=== PATIENT | female | born 1980 | race Hispanic/Latino ===

== ENCOUNTER 2017-12-07 10:16 | Inpatient (IN) | payer MEDICAID ==
[2017-12-07] MEDS ORDERED: BICITRA PO ONE (10:37)
[2017-12-07] MEDS ORDERED: PEPCID IV ONE ×2 (10:37→13:35)
[2017-12-07] MEDS ORDERED: REGLAN IV ONE (10:37)
--- NOTE | 2017-12-07 10:40 | History and Physical Report ---
History of Present Illness Date of examination: 12/07/17 (SROM @ home this AM) Date of admission: 12/07/17 10:16 Chief complaint: SROM this AM History of present illness: EDC Calculations LMP: 12/24/2017 EDC Confirmation: 12/24/2017 Gestational Age: 11 4/7 weeks Past History : 3 Term Births: 0 Premature Births: 0 Living Children: 0 Para: 0 Mult. Births: 0 Prev : 0 Prev. attempt? 0 Aborta: 2 Elect. Ab: 1 Spont. Ab: 1 Ectopics: 0 # 1 Delivery date: 2012 Weeks Gestation: 8 Delivery type: SAB Comments: expectant management # 2 Delivery date: 2014 Delivery type: EAB Past Medical History: Depression - referred to [facility] Past Surgical History: D&C: Risk Factors: Smoked Tobacco Use: Never smoker Smokeless Tobacco Use: Never Passive smoke exposure: no Drug use: no HIV high-risk behavior: no Caffeine use: 2 drinks per day Alcohol use: no Exercise: no Seatbelt use: 100 % Family History Risk Factors: Family History of CT in females < 65 years old: no Family History of CT in males < 55 years old: no Dietary Counseling: pn yes Past Medical History Surgery (Non-global account director): D&C: Abnormal PAP: negative OLGA Exposure: negative Infertility: negative Uterine Anomaly: negative Uterine Surgery (not C/S): negative Other Gynecologic Problems: negative Family Hx: Mother, MGM - DM & HTN Social Hx: Homemaker Dogs No ETOH/Drugs/Smoking Infection History Hx of STD: none HIV Risk Eval: no Hepatitis B Risk Eval: low risk Personal hx. of genital herpes: no Partner hx. of genital herpes: no Rash, Viral, or Febrile illness since last LMP? no Varicella/Chicken Pox Status: Previous Disease Genetic History Congenital Heart Defect: Mom: no Dad: no Ezequiel Disease: Mom: no Dad: no Thalassemia Mom: no Dad: no Neural Tube Defect Mom: no Dad: no Down's Syndrome Mom: no Dad: no Justin-Sachs Mom: no Dad: no Sickle Cell Disease/Trait Mom: no Dad: no Hemophilia Mom: no Dad: no Muscular Dystrophy Mom: no Dad: no Cystic Fibrosis Mom: no Dad: no Bhavik Chorea Mom: no Dad: no Mental Retardation Mom: no Dad: no Fragile X Mom: no Dad: no Other Genetic/Chromosomal Disorder Mom: no Dad: no Child w/other defect Mom: no Dad: no Enviromental Exposures Xray Exposure: no Medication, drug, or alcohol use since LMP: no Chemical/Other Exposure: no Exposure to Cat Liter: no Hx of Parvovirus (Fifth Disease): no Occupational Exposure to Children: none Active Medications (reviewed today): None Current Allergies (reviewed today): No known allergies Laboratory Results Date/Time Collected: 06/08/2017 Routine Urinalysis Leukocytes: negative Nitrite: negative Urobilinogen: negative Protein: negative Blood: negative Ketone: negative Bilirubin: negative Glucose: negative Urine HCG: positive Review of Systems General Denies fever, chills, sweats, anorexia, fatigue, weakness, malaise, weight loss and sleep disorder. Denies nausea, vomiting, headache, swelling of legs, abdominal pain, vaginal discharge, vaginal bleeding and contractions. Denies vaginal discharge, incontinence, dysuria, hematuria, urinary frequency, amenorrhea, menorrhagia, abnormal vaginal bleeding, pelvic pain, genital sores, decreased libido, painful periods, painful sex, urinary urgency, hot flashes, vaginal dryness, vaginal itching and vaginal odor. CV Denies chest pains, palpitations, syncope, dyspnea on exertion, orthopnea, PND and peripheral edema. Resp Denies cough, dyspnea at rest, excessive sputum, hemoptysis, wheezing and pleurisy. GI Denies nausea, vomiting, diarrhea, constipation, change in bowel habits, abdominal pain, melena, hematochezia, jaundice, gas/bloating, indigestion/ heartburn, dysphagia and odynophagia. Endo Denies cold intolerance, heat intolerance, polydipsia, polyphagia, polyuria and unusual weight change. Breast Denies left breast lump, right breast lump, nipple discharge, bloody discharge from nipple, breast pain, abnormal mammogram and breast enlargement. MS Denies back pain, joint pain, joint swelling, muscle cramps, muscle weakness, stiffness, arthritis, sciatica, restless legs, leg pain at night and leg pain with exertion. Derm Denies rash, itching, dryness and suspicious lesions. Neuro Denies paralysis, paresthesias, headache, seizures, tremors, vertigo, transient blindness, frequent falls, frequent headaches and difficulty walking. Psych Denies depression, anxiety, irritability and mood swings. Eyes Denies blurring, diplopia, irritation, discharge, vision loss, eye pain and photophobia. ENT Denies earache, ear discharge, tinnitus, decreased hearing, nasal congestion, nosebleeds, sore throat and hoarseness. Allergy Denies urticaria, allergic rash, hay fever and recurrent infections. Heme Denies abnormal bruising, bleeding and enlarged lymph nodes. PHYSICAL EXAM HEENT: PERRLA, normal conjunctiva, external nose and nasal mucosa normal, oropharynx clear Neck/Thyroid: supple, thyroid normal Skin no significant abnormal lesions or rashes Chest: respiratory effort normal, clear to auscultation Breasts: normal without skin changes or masses CV: regular, normal S1-S2, no murmur, no rub, no gallop Abdomen: normal bowel sounds, soft, nontender, no HSM Musculoskeletal: grossly normal ROM in joints, no joint tenderness or muscle weakness Neuro: grossly normal DTRs, sensation, strength, cranial nerves Extremities: no clubbing, cyanosis, or edema DIVISION SALES MANAGER Exams Vulva/Vagina: No lesions, normal BUS, normal rugae Cervix: No lesions; no cervical motion tenderness Uterus: normal size and position, midline, mobile Fundal Ht: 10-12wk Adnexae: no masses or tenderness Rectovaginal: no masses or tenderness Past History - Obstetrical History Expected Date of Delivery: 12/24/17 Actual Gestation: 37 Week(s) 4 Day(s) : 3 Para: 0 Spontaneous Abortions: 1 Induced : 1 Number of Living Children: 0 Medications and Allergies Allergies Allergy/AdvReac Type Severity Reaction Status Date / Time No Known Allergies Allergy Unverified 12/07/17 11:29 Results All other labs normal. Assessment and Plan Gross ROM this AM copious amt of clear fluid. JUSTINA 43 with AMFM last week. EFW > 10 pounds Pt opted for primary c/s which had been scheduled. Will proceed with c /s today. Pt aware of risks of vaginal delivery with large baby. Reviewed risks of c/s: bleeding, repeat section with future pregnancies, damage to organs, need for blood transfusion. aware and agrees with proceeding with operative delivery. Orders in EMR.
[2017-12-07] MEDS ORDERED: PITOCin/NS 20 UNIT/1000ML DRIP 20 UNITS/1,000 ML BAG IV SCH ×2 (11:00→17:00)
[2017-12-07] MEDS ORDERED: NORMOSOL-R PH 7.4 1,000 ML IV SCH (11:00)
[2017-12-07] MEDS ORDERED: ANCEF/STERILE WATER 2 GM/20 ML 2 GM/20 ML SYRINGE IV NR (11:00)
--- NOTE | 2017-12-07 11:48 | Anesthesia Consultation ---
Anesthesia Consult and Med Hx Date of service: 12/07/17 - Airway Anesthetic Teeth Evaluation: Good ROM Head & Neck: Adequate Mental/Hyoid Distance: Adequate Mallampati Class: Class II Intubation Access Assessment: Probably Good - Pre-Operative Health Status ASA Pre-Surgery Classification: ASA2 Proposed Anesthetic Plan: Epidural, Spinal - Endocrine Hx Non-Insulin Dependent Diabetes: Yes (gestational diabetes, diet controlled) - Other Systems Hx Obesity: Yes (BMI 34.2)
--- NOTE | 2017-12-07 11:48 | Anesthesia Day of Surgery ---
Anesthesia Day of Surgery - Day of Surgery Patient Examined: Yes Patient H&P Reviewed: Yes Patient is NPO: Yes
[2017-12-07] MEDS ORDERED: PHENERGAN PR PRN (11:49)
[2017-12-07] MEDS ORDERED: TORADOL IV PRN ×2 (11:49→17:00)
[2017-12-07] MEDS ORDERED: NARCAN 0.4 MG/1 ML IV PRN ×2 (11:49→17:00)
[2017-12-07] MEDS ORDERED: BENADRYL IV PRN (11:49)
[2017-12-07] MEDS ORDERED: ZOFRAN IV PRN ×2 (11:49→17:00)
[2017-12-07] MEDS ORDERED: DILAUDID IV PRN (11:49)
[2017-12-07] MEDS ORDERED: PHENERGAN PO PRN (11:49)
[2017-12-07] MEDS ORDERED: SODIUM CHLORIDE FLUSH SYRINGE 10 ML IV NR ×2 (12:00→17:00)
[2017-12-07 13:13] LABS: Hematocrit 34.2 % (30.3-42.9); Hemoglobin 11.2 gm/dl (10.1-14.3); Mean Corpuscular HGB Conc 33 % (30-34); Mean Corpuscular Hemoglobin 31 pg (28-32); Mean Corpuscular Volume 93 fl (79-97); Platelet Count 189 K/mm3 (140-440); Red Blood Count 3.67 M/mm3 (3.65-5.03); Red Cell Distribution Width 15.6 % (13.2-15.2)
[2017-12-07] MEDS ORDERED: REGLAN ONE (13:35)
[2017-12-07] MEDS ORDERED: BICITRA ONE (13:36)
--- NOTE | 2017-12-07 13:52 | Event Note ---
Date: 12/07/17 Patient informed the risks of the surgery include bleeding possibly bleeding heavy enough to require blood transfusion, infection possible damage to bowel bladder ureter. All questions answered. Patient agrees to proceed
[2017-12-07] MEDS ORDERED: NACL 0.9% 1000 ML 1,000 ML ONE (14:04)
[2017-12-07] MEDS ORDERED: ANCEF/STERILE WATER 2 GM/20 ML IV ONE (14:07)
[2017-12-07] MEDS ORDERED: NACL 0.9% IR ONE (14:10)
[2017-12-07] MEDS ORDERED: WATER FOR IRRIG STERILE IR ONE (14:10)
[2017-12-07] MEDS ORDERED: METHERGINE IM ONE (14:31)
[2017-12-07] MEDS ORDERED: NEO SYNEPHRINE/NS Syringe(OR USE) IV ONE (14:35)
[2017-12-07] MEDS ORDERED: ZOFRAN ONE (14:42)
[2017-12-07] MEDS ORDERED: ASTRAMORPH PF 10MG/10ML ONE (14:43)
--- NOTE | 2017-12-07 14:56 | Operative Report ---
Operative Report Operative Report: Date of procedure: The 2017 Pre-operative diagnosis: In uterine at 37 weeks with macrosomia and premature rupture of membranes Post-operative diagnosis: Same as uterine atony Procedure name(s): Very low transverse section Surgeon: Eulalio Ramirez MD Seafood Process Worker: JUD Anesthesia: Spinal EBL: 800 mL Complications: None Findings: [] Specimen(s): [] Procedure: The patient was brought to the operating room. A spinal was placed without any complications. She was then placed in left lateral tilt. Prepped and draped in the usual sterile manner. After testing for adequate anesthesia level, a Pfannenstiel incision was made. This incision was taken down to the fascia. The fascia was then nicked in the midline. This incision was extended out laterally with Bowser scissors. The fascia was then sharply and bluntly from the underlying rectus muscles. The rectus muscles were bluntly and sharply . The peritoneum was then entered with the milling machine operator's fingers. This incision was spread vertically with care not to damage the bladder below. The bladder flap was then formed sharply and bluntly with Metzenbaum scissors. [The Artem self-retaining tractor was then placed without any difficulty]. A transverse incision was made in lower uterine segment. This incision was extended laterally with the operators fingers. The amniotic sac was then entered bluntly with the milling machine operator's fingers. The infant was delivered from the vertex position. Bulb suction on the mother's abdomen. Cord was double clamped and cut. The infant was then passed to the nursery personnel who were in attendance. The above scores were given by the nursery personnel. The placenta was then bluntly removed. The uterus was then externalized and wiped clean the remaining products. The uterine incision was closed in layers. The first incision was closed in a locking manner using 0 Vicryl. This was followed by imbricating stitch also with 0 Vicryl. This closure was hemostatic. The bladder flap was copiously irrigated and found to be hemostatic. The pelvis was copiously irrigated and found to be hemostatic. The uterus was then placed back to the patient's abdomen. The retractors were removed. The rectus muscles were inspected and found to be hemostatic. The fascia was then closed in a running manner using 0 Vicryl. This incision was hemostatic irrigation Bovie. The skin was reapproximated with 4-0 Vicryl subcuticularly. The patient tolerated procedure well. Her urine was clear. The was admitted to the [well baby] nursery. The patient was accompanied to recovery room in good condition. Instrument count correct 3.
[2017-12-07 15:07] LABS: Band Neutrophils # (Manual) 0.5 K/mm3; Basophils % (Manual) 0 % (0.0-1.8); Total Cells Counted 100
[2017-12-07 15:08] LABS: Anisocytosis 1+; Macrocytosis 1+; Platelet Estimate Consistent w Auto
[2017-12-07] MEDS ORDERED: NORCO 5/325 PO PRN (17:00)
[2017-12-07] MEDS ORDERED: MYLICON PO PRN (17:00)
[2017-12-07] MEDS ORDERED: ANCEF/NS 1 GM/50 ML 1 GM/50 ML BAG IV SCH (17:00)
[2017-12-07] MEDS ORDERED: LANSINOH TP PRN (17:00)
[2017-12-07] MEDS ORDERED: MILK OF MAGNESIA PO PRN (17:00)
[2017-12-07] MEDS ORDERED: NACL 0.9% 1000 ML 1,000 ML IV SCH (17:00)
[2017-12-07] MEDS ORDERED: TUCKS PAD TP PRN (17:00)
[2017-12-07] MEDS ORDERED: ceFAZolin 1 GM in NACL 0.9% 20 ML IV SCH (17:30)
[2017-12-07] MEDS: ceFAZolin 1 GM in NACL 0.9% 20 ML IV SCH (22:00)
[2017-12-08] MEDS: ceFAZolin 1 GM in NACL 0.9% 20 ML IV SCH (05:52)
[2017-12-08 05:54] LABS: Hemoglobin 8.6 gm/dl (10.1-14.3)
[2017-12-08 06:20] LABS: Hematocrit 26.3 % (30.3-42.9)
--- NOTE | 2017-12-08 08:31 | Progress Note ---
Assessment and Plan Patient doing well w/o complaints. with great latch. VSSAF, H&H 8.6/26.3 (asymptomatic anemia d/t acute blood loss.) Lochia scant. Dressing D&I , nursing staff to remove during AM care. continue postop pathway. - Patient Problems (1) delivery delivered Current Visit: Yes Status: Acute (2) Anemia due to acute blood loss Current Visit: Yes Status: Acute Subjective - Subjective Date of service: 12/08/17 Principal diagnosis: postop day #1 s/p primary c/s Patient reports: appetite normal, voiding normally, pain well controlled, flatus , ambulating normally, no dizzy ambulation, no nauseated [place]: doing well, nursing well Objective - Vital Signs Latest vital signs: Vital Signs Temp Pulse Resp BP BP Pulse Ox 12/08/17 04:14 98.9 F 98 H 20 113/75 95 12/08/17 02:35 18 12/08/17 01:24 99.0 F 82 20 125/73 96 12/07/17 21:20 98.2 F 75 20 118/68 98 12/07/17 16:09 65 12 127/72 100 12/07/17 15:41 67 13 120/75 100 12/07/17 15:25 71 12 124/72 100 12/07/17 15:20 72 15 121/64 100 12/07/17 15:15 76 16 113/58 100 12/07/17 15:10 98.2 F 85 16 104/45 100 12/07/17 13:20 98.4 F 78 20 127/83 100 12/07/17 11:55 80 99 12/07/17 11:50 78 99 12/07/17 11:45 82 99 12/07/17 11:41 78 127/83 12/07/17 11:40 84 98 12/07/17 11:35 85 98 12/07/17 11:30 81 98 12/07/17 11:25 79 98 Intake and Output 12/07/17 12/08/17 12/08/17 23:59 07:59 15:59 Intake Total 1030 120 Output Total 975 400 Balance 55 -280 Intake: IV 550 Oral 480 Intake, Free Water 120 Output: Urine 975 400 Indwelling Catheter 275 400 Uretheral ([place]) 350 Other: Total, Intake Amount 120 Total, Output Amount 275 400 - Exam Breasts: Present: normal, Cardiovascular: Present: Regular rate Lungs: Present: Clear to auscultation, Normal air movement Abdomen: Present: normal appearance, soft Vulva: both: normal Uterus: Present: normal, firm, fundal height at umbilicus Extremities: Present: normal Incision: Present: normal, dry, dressed - Labs Labs: Abnormal lab results 12/07/17 12/08/17 Range/Units 12:20 05:14 WBC 12.5 H (4.5-11.0) K/mm3 Hgb 8.6 L (10.1-14.3) gm/dl Hct 26.3 L D (30.3-42.9) % RDW 15.6 H (13.2-15.2) % Seg Neuts % (Manual) 79.0 H (40.0-70.0) % Lymphocytes % (Manual) 7.0 L (13.4-35.0) % Seg Neutrophils # Man 9.9 H (1.8-7.7) K/mm3 Lymphocytes # (Manual) 0.9 L (1.2-5.4) K/mm3
[2017-12-08] MEDS ORDERED: FEOSOL PO SCH (10:00)
[2017-12-08] MEDS: MOTRIN PO PRN ×2 (10:27→16:41)
[2017-12-08] MEDS: PRENATAL VITAMIN PO SCH (10:27)
[2017-12-08] MEDS: COLACE PO SCH ×2 (10:27→21:57)
[2017-12-08] MEDS: FEOSOL PO SCH ×2 (10:28→21:57)
[2017-12-08] MEDS: NORCO 5/325 PO PRN ×3 (12:32→21:56)
[2017-12-09] MEDS: MOTRIN PO PRN ×2 (05:10→15:50)
[2017-12-09] MEDS ORDERED: BOOSTRIX IM ONE (06:00)
--- NOTE | 2017-12-09 08:11 | Discharge Summary ---
Providers - Providers Date of Admission: 12/07/17 10:16 Date of discharge: 12/09/17 (pt desires d/c home) Attending physician: TONG FAUSTIN 12/07/17 17:00 Consult to Rn Iv Therapy [CONS] Routine Reason For Exam: Primary care physician: PINKY RUIZ Hospitalization Reason for admission: SROM Condition: Good Procedures: primary c/s for suspected macrosomia Hospital course: uncomplicated c/s and course Disposition: - TO HOME OR SELFCARE - Discharge Diagnoses (1) delivery delivered Status: Acute (2) Anemia due to acute blood loss Status: Acute Core Measure Documentation - Palliative Care Palliative Care/ Comfort Measures: Not Applicable - Core Measures Any of the following diagnoses?: none Exam - Constitutional Vitals: Temp Pulse Resp BP Pulse Ox 98.4 F 90 20 123/76 96 12/09/17 00:00 12/09/17 00:00 12/09/17 05:10 12/09/17 00:00 12/08/17 13:10 General appearance: Present: no acute distress, well-nourished - EENT Eyes: Present: PERRL ENT: hearing intact, clear oral mucosa - Neck Neck: Present: supple, normal ROM - Respiratory Respiratory effort: normal Respiratory: bilateral: CTA - Cardiovascular Heart Sounds: Present: S1 & S2. Absent: rub, click - Extremities Extremities: pulses symmetrical, No edema Peripheral Pulses: within normal limits - Abdominal General gastrointestinal: Present: soft, non-tender, non-distended, normal bowel sounds Female genitourinary: Present: normal - Integumentary Integumentary: Present: clear, warm, dry - Musculoskeletal Musculoskeletal: gait normal, strength equal bilaterally - Psychiatric Psychiatric: appropriate mood/affect, intact judgment & insight - Neurologic Neurologic: CNII-XII intact, moves all extremities - Additional findings Additional findings: lochia scant, fundus firm, incision D&I, well. Plan Activity: no restrictions, advance as tolerated Diet: regular Wound: open to air, keep clean and dry Follow up with: PINKY RUIZ CNM [Primary Care Provider] - 7 Days (Congratulations!! Please call [phone] to schedule your son's circumcision and your incision check in 1 week. Bring EMLA cream to your son's appointment and await further instructions. Call for any questions or concerns.) Prescriptions: Ferrous Sulfate [Feosol 325 MG tab] 325 mg PO BID #60 tablet Ibuprofen [Motrin 800 MG tab] 800 mg PO Q6H PRN #30 tablet PRN Reason: Pain oxyCODONE /ACETAMINOPHEN [Percocet 5/325 mg] 1 - 2 tab PO Q4H PRN #30 tablet PRN Reason: Pain, Moderate
[2017-12-09 10:15] VITALS: BP 127/76
[2017-12-09] MEDS: COLACE PO SCH (10:20)
[2017-12-09] MEDS: PRENATAL VITAMIN PO SCH (10:20)
[2017-12-09] MEDS: NORCO 5/325 PO PRN ×2 (10:20→15:50)
[2017-12-09] MEDS: FEOSOL PO SCH (10:20)
== END 2017-12-09 16:19 | disposition home or self-care (01) | DRG 765 ==
LOC: APU 10:16 → OB 16:34
PROVIDERS: ADMIT Obstetrics & Gynecology; ATTEND Obstetrics & Gynecology
PROC: 10D00Z1 Extraction of Products of Conception, Low, Open Approach (ICD-10-PCS; principal; 2017-12-07)
DX: O36.63X0 Maternal care for excessive fetal growth, third trimester, not applicable or unspecified (principal); D62 Acute posthemorrhagic anemia; Z3A.37 37 weeks gestation of pregnancy; Z37.0 Single live birth; O90.81 Anemia of the puerperium; O62.2 Other uterine inertia; O42.92 Full-term premature rupture of membranes, unspecified as to length of time between rupture and onset of labor
CPT/HCPCS: 36415; 85007; 85014; 85018; 85025; 86592; 86850; 86870; 86900; 86901; 90471; 90715; 99211; G0463; J0690; J1885; J2210; J2274; J2370; J2405; J2590; J2765; J7030